=== PATIENT | male | born 1955 | race Caucasian/White ===

== ENCOUNTER 2016-04-05 07:00 | Outpatient (CLI) | payer OTHER ==
[2016-04-05 08:28] LABS: Hemoglobin A1c 9.4 % (4.0-6.0)
[2016-04-05 08:30] LABS: ALT (SGPT) 38 U/L (0-55); AST (SGOT) 26 U/L (5-34); Albumin 4.2 g/dL (3.5-5.0); Alkaline Phosphatase 108 U/L (40-150); Anion Gap 16 mmol/L (10-20); BUN (Urea Nitrogen) 18 mg/dL (8.4-25.7); Bilirubin, Total 0.4 mg/dL (0.2-1.2); Calc. Creatinine Clearance 0 mL/min (70-130); Calcium 9.4 mg/dL (7.8-10.44); Carbon Dioxide 26 mmol/L (22-29); Cardiac Risk 5.1 (Less than 4.5); Chloride 103 mmol/L (98-107); Cholesterol 278 mg/dL (< 200 Desired); Estimated GFR-MDRD Greater than 90; Globulin 2.5 g/dL (2.4-3.5); Glucose 125 mg/dL (70-105); HDL Cholesterol 55 mg/dL (>60 Neg Risk); LDL Cholesterol, Calculated 199 mg/dL; Potassium 3.9 mmol/L (3.5-5.1); Protein, Total 6.7 g/dL (6.0-8.3); Sodium 141 mmol/L (136-145); Triglycerides 119 mg/dL (Less than 150)
[2016-04-05 08:46] LABS: Free T4 (Free Thyroxine) 0.89 ng/dL (0.70-1.48)
[2016-04-05 14:43] LABS: Vitamin D, 25 Hydroxy 36.7 ng/mL (> 30.0)
[2016-04-05 17:32] LABS: Microalbumin Urine Less than 1.0 mg/dL (0.5-50.0)
[2016-04-05 17:57] LABS: Creatinine, Urine 91.55 mg/dL (63-166); Microalbumin/Creat Ratio 10.9 mg/g (Less than 30)
== END 2016-04-05 07:01 | disposition home or self-care (01) ==
LOC: MADLAB 07:00
PROVIDERS: ATTEND Internal Medicine Endocrinology, Diabetes & Metabolism
DX: E78.2 Mixed hyperlipidemia (principal); E11.65 Type 2 diabetes mellitus with hyperglycemia; E55.9 Vitamin D deficiency, unspecified
CPT/HCPCS: 36415; 80053; 80061; 82043; 82306; 83036; 84439; 84443

== ENCOUNTER 2016-07-09 07:06 | Outpatient (CLI) | payer OTHER ==
[2016-07-09 07:46] LABS: Anion Gap 14 mmol/L (10-20); BUN (Urea Nitrogen) 18 mg/dL (8.4-25.7); Calc. Creatinine Clearance 0 mL/min (70-130); Calcium 9.6 mg/dL (7.8-10.44); Carbon Dioxide 27 mmol/L (22-29); Chloride 104 mmol/L (98-107); Estimated GFR-MDRD 84; Glucose 233 mg/dL (70-105); Potassium 4.3 mmol/L (3.5-5.1); Sodium 141 mmol/L (136-145)
[2016-07-09 08:11] LABS: Bilirubin Negative (Negative); Blood, Urine Negative (Negative); Clarity Clear (Clear); Glucose, Urine (Dipstick) >=1000 mg/dL (Negative); Leukocyte Negative (Negative); Nitrite Negative (Negative); Protein, Urine (Dipstick) Negative (Neg-Trace); Specific Gravity, Urine 1.025 (1.005-1.030); Urobilinogen 0.2 mg/dL (0.2-1.0); pH, Urine 5.5 (5.0-9.0)
[2016-07-09 08:23] LABS: Bacteria/HPF None Seen HPF (None Seen); RBC/HPF 0-3 HPF (0-3); Squamous Epithelial None Seen HPF (0-3); WBC/HPF None Seen HPF (0-3)
== END 2016-07-09 07:07 ==
LOC: MADLAB 07:06
PROVIDERS: ATTEND Urology
DX: Z12.5 Encounter for screening for malignant neoplasm of prostate (principal); N40.0 Benign prostatic hyperplasia without lower urinary tract symptoms; R35.0 Frequency of micturition
CPT/HCPCS: 36415; 80048; 81001; 84153; 87086

== ENCOUNTER 2016-07-10 09:54 | Outpatient (CLI) | payer OTHER ==
--- NOTE | 2016-07-10 13:22 | ULT ---
BILATERAL RENAL ULTRASOUND: Date: 07/10/16 HISTORY: Kidney stones, BPH, diabetes. FINDINGS: The right kidney measures 10.7 cm in length and the left kidney measures 11.5 cm in length. No focal mass or hydronephrosis is seen on either side. No shadowing calculi are seen in either kidney. The urinary bladder has a pre-void volume of 109 mL and a post-void residual of 8 mL. The prostate measu res 3.5 x 1.6 x 2.6 cm. IMPRESSION: 1. Normal renal ultrasound. 2. Prostatic enlargement. POS: [facility]
== END 2016-07-10 09:55 | disposition home or self-care (01) ==
LOC: MADULT 09:54
PROVIDERS: ATTEND Urology
DX: Z12.5 Encounter for screening for malignant neoplasm of prostate (principal); N40.0 Benign prostatic hyperplasia without lower urinary tract symptoms; R35.0 Frequency of micturition; Z87.442 Personal history of urinary calculi
CPT/HCPCS: 76770

== ENCOUNTER 2016-08-01 07:23 | Outpatient (CLI) | payer OTHER ==
[2016-08-01 08:16] LABS: Hemoglobin A1c 8.7 % (4.0-6.0)
[2016-08-01 08:24] LABS: ALT (SGPT) 21 U/L (8-55); AST (SGOT) 16 U/L (5-34); Albumin 4.2 g/dL (3.5-5.0); Alkaline Phosphatase 92 U/L (40-150); Anion Gap 13 mmol/L (10-20); BUN (Urea Nitrogen) 23 mg/dL (8.4-25.7); Bilirubin, Total 0.6 mg/dL (0.2-1.2); Calc. Creatinine Clearance 0 mL/min (70-130); Calcium 9.5 mg/dL (7.8-10.44); Carbon Dioxide 27 mmol/L (22-29); Cardiac Risk 5.2 (Less than 4.5); Chloride 105 mmol/L (98-107); Cholesterol 271 mg/dl (< 200 Desired); Estimated GFR-MDRD 76; Globulin 2.9 g/dL (2.4-3.5); Glucose 131 mg/dL (70-105); HDL Cholesterol 52 mg/dL (>60 Neg Risk); LDL Cholesterol, Calculated 194 mg/dL; Potassium 4.1 mmol/L (3.5-5.1); Protein, Total 7.1 g/dL (6.0-8.3); Sodium 141 mmol/L (136-145); Triglycerides 127 mg/dL (Less than 150)
[2016-08-01 09:09] LABS: Free T4 (Free Thyroxine) 1.01 ng/dL (0.70-1.48); Vitamin D, 25 Hydroxy 60.5 ng/ml (> 30.0)
== END 2016-08-01 07:24 | disposition home or self-care (01) ==
LOC: MADLAB 07:23
PROVIDERS: ATTEND Internal Medicine Endocrinology, Diabetes & Metabolism
DX: E78.2 Mixed hyperlipidemia (principal); E11.65 Type 2 diabetes mellitus with hyperglycemia; E55.9 Vitamin D deficiency, unspecified; E03.9 Hypothyroidism, unspecified
CPT/HCPCS: 36415; 80053; 80061; 82306; 83036; 84439; 84443